=== PATIENT | female | born 1990 | race African-American/Black ===

== ENCOUNTER 2018-09-05 10:04 | Emergency (ER) | payer SELFPAY ==
[2018-09-05 10:29] VITALS: BP 124/80; PULSE 80; TEMP 98.6; BMI 26.4
--- NOTE | 2018-09-05 11:16 | PDOC ---
History of Present Illness - General Chief Complaint: Cold Symptoms Stated Complaint: FLU [id number] Time Seen by Provider: 09/05/18 10:50 History Source: Patient Exam Limitations: No Limitations - History of Present Illness Initial Comments: 09/05/18 13:00 acute onset of fevers, chills, body aches, ear and throat pain, sore throat pain. States is exposed to a few family members who were diagnosed with influenza last week Timing/Duration: reports: getting worse Severity: reports: mild, moderate Associated Symptoms: reports: cough, dizziness, fever/chills, lightheadedness, muscle aches, nasal congestion, nasal drainage Past History - Travel Traveled outside of the country in the last 30 days: No Close contact w/someone who was outside of country & ill: No - Past Medical History Allergies/Adverse Reactions: Allergies Allergy/AdvReac Type Severity Reaction Status Date / Time sulfamethoxazole Allergy Verified 09/05/18 10:24 [From ] trimethoprim [From ] Allergy Verified 09/05/18 10:24 Home Medications: Ambulatory Orders Acetaminophen [Tylenol] 650 mg PO QID PRN 09/05/18 Albuterol 0.083% Nebulizer Gia [Ventolin 0.083% Nebulizer Soln -] 1 neb NEB Q4H PRN #30 vial 09/05/18 Albuterol 0.083% Nebulizer Gia [Ventolin 0.083%] 1 neb NEB QID PRN 09/05/18 Oseltamivir Phosphate [Tamiflu -] 75 mg PO BID #10 capsule 09/05/18 Asthma: Yes COPD: No - Suicide/Smoking/Psychosocial Hx Smoking History: Never smoked Review of Systems - Review of Systems Able to Perform ROS?: Yes Is the patient limited Tajik proficient: Yes Constitutional: Yes: Symptoms Reported, See HPI HEENTM: Yes: Symptoms Reported, See HPI, Nose Congestion, Difficulty Swallowing Respiratory: Yes: Symptoms reported, See HPI, Cough Musculoskeletal: Yes: Symptoms Reported All Other Systems: Reviewed and Negative *Physical Exam - Vital Signs Last Vital Signs Temp Pulse Resp BP Pulse Ox 98.6 F 80 18 124/80 09/05/18 10:28 09/05/18 10:28 09/05/18 10:28 09/05/18 10:28 - Physical Exam Comments: 09/05/18 13:05 GENERAL: [ The pateint is awake, alert, and appropriately interactive.] EYES: [The pupils are equal, round, and reactive to light, with clear, conjunctiva.but glassy] NOSE: [The nose with clear drainage EARS: [The ear canals and tympanic membranes are congested but landmarks easily visualed ] THROAT: [The oropharynx is clear with erythema, no exudates. The mucous membranes are moist.] NECK: [The neck is supple with mildly tender adenopathy, no menigemous] CHEST: [The lungs are coarse but clear without crackles, or wheezes.] HEART: [Heart is regular rhythm, with normal S1 and S2, no murmurs.] ABDOMEN: [The abdomen is soft and nontender with normal bowel sounds. There is no organomegaly and no mass. There is no guarding or rebound.] EXTREMITIES: [Extremities are normal.] NEURO: [Behavior is normal for age.cranky but easily, Tone is normal.] SKIN: [Skin is unremarkable without rash or swelling. There is no bruising, and there are no other signs of injury.] General Appearance: Yes: Nourished, Appropriately Dressed, Apparent Distress HEENT: negative: TMs Normal Moderate Sedation - Procedure Monitoring Vital Signs: Procedure Monitoring Vital Signs Temperature 98.6 F 09/05/18 10:28 Pulse Rate 80 09/05/18 10:28 Respiratory Rate 18 09/05/18 10:28 Blood Pressure 124/80 09/05/18 10:28 O2 Sat by Pulse Oximetry (%) Progress Note - Progress Note Progress Note: All clinical exam indicates influenza. We will treat with Tamiflu *DC/Admit/Observation/Transfer Diagnosis at time of Disposition: Influenzal acute upper respiratory infection - Discharge Dispostion Disposition: HOME Condition at time of disposition: Stable Decision to Admit order: No - Prescriptions Prescriptions: Albuterol 0.083% Nebulizer Gia [Ventolin 0.083% Nebulizer Soln -] 1 neb NEB Q4H PRN #30 vial PRN Reason: Cough Oseltamivir Phosphate [Tamiflu -] 75 mg PO BID #10 capsule - Referrals - Patient Instructions Printed Discharge Instructions: DI for Viral Upper Respiratory Infection -- Adult Additional Instructions: Rest, drink lots of fluids: Teas, water, soups, Pedialyte Saltwater gargles Steamy showers/seem to face break up mucus Old-fashioned treatments help! Avoid contact with others until fevers and cough resolved as this is very contagious Lots of handwashing and good hygiene Continue [id number] medications for symptomatic relief Tylenol or Motrin for fever and pain Take all of Tamiflu as directed: 1 tab every 12 hours for 5 days Followup with private physician in one to 2 days as needed or if worsening Return to emergency department for worsened symptoms, fevers, dehydration Influenza takes between 5 and 7 days for resolution To not participate in any activity, work, or school until fevers and cough are gone for at least one day - Post Discharge Activity Forms/Work/School Notes: Back to Work
== END 2018-09-05 11:15 | disposition home or self-care (01) ==
LOC: JERFT 10:04
DX: J11.1 Influenza due to unidentified influenza virus with other respiratory manifestations (principal)
CPT/HCPCS: 99281-25